=== PATIENT | female | born 1955 | race Caucasian/White ===

== ENCOUNTER 2019-04-17 16:39 | Emergency (ER) | payer MEDICARE, OTHER ==
[~2019-04-17] VITALS: Ht 165.1 cm; Wt 59.0 kg
[2019-04-17] MEDS ORDERED: Prednisone50 MG PO (17:48)
[2019-04-17] MEDS ORDERED: BENADRYL25 MG PO (17:48)
[2019-04-17] MEDS ORDERED: Pepcid20 MG PO (17:48)
[2019-04-17] MEDS ORDERED: EPIPEN 2-P0.3 MG/0.3 IM (19:54)
== END 2019-04-17 20:10 | disposition home or self-care (01) ==
LOC: ER 16:39
DX: T78.40XA Allergy, unspecified, initial encounter (principal)
CPT/HCPCS: 96374; 99284-25; J1200

== ENCOUNTER → 2023-10-25 | Outpatient (CLI) | payer MEDICARE, OTHER ==
[~2023-10-25] MED LIST: BENADRYL25 MG PO; EPIPEN 2-P0.3 MG/0.3 IM; Pepcid20 MG PO; Prednisone50 MG PO
[2023-10-25 15:37] LABS: BASOPHILS ABSOLUTE AUTO 0.06 K/mm3 (0.00-0.23); BASOPHILS PERCENT AUTO 1 % (0-2); EOSINOPHILS ABSOLUTE AUTO 0.19 K/mm3 (0.00-0.68); EOSINOPHILS PERCENT AUTO 3 % (0-6); Hematocrit 42.7 % (33.0-51.0); IMMATURE GRAN ABSOLUTE AUTO 0.02 K/mm3 (0.00-0.10); IMMATURE GRAN PERCENT AUTO 0 % (0-1); LYMPHOCYTES ABSOLUTE AUTO 1.39 K/mm3 (0.84-5.20); LYMPHOCYTES PERCENT AUTO 24 % (21-46); MONOCYTES ABSOLUTE AUTO 0.57 K/mm3 (0.16-1.47); MONOCYTES PERCENT AUTO 10 % (4-13); Mean Corpuscular HGB 30.5 pg (26.0-34.0); Mean Corpuscular HGB Conc 32.8 g/dL (31.5-36.5); Mean Corpuscular Volume 93 fL (80-100); Mean Platelet Volume 10.6 fL (9.1-12.4); NEUTROPHILS ABSOLUTE AUTO 3.68 K/mm3 (1.96-9.15); NEUTROPHILS PERCENT AUTO 62 % (41-73); Platelet Count 179 K/mm3 (150-400); RDW Coefficient Variation 13.2 % (11.7-14.2); RDW Standard Deviation 45.2 fL (35.1-46.3); Red Blood Cell Count 4.59 M/mm3 (3.80-5.20); White Blood Cell Count 5.91 K/mm3 (4.00-11.30)
[2023-10-25 15:39] LABS: Alanine Aminotransfer (ALT/SGP 47 U/L (12-78); Albumin, Blood 4.4 g/dL (3.4-5.0); Albumin/Globulin Ratio 1.2 (0.8-1.8); Alk Phos 105 U/L (50-136); Anion Gap 7 mmol/L (3-11); Aspartate Aminotrans (AST/SGOT 46 U/L (12-37); Bilirubin, Total 0.5 mg/dL (0.1-1.0); Blood Urea Nitrogen 26 mg/dL (8-24); Bun/Creatinine Ratio 29.7 (12.0-20.0); CHOL/HDL RATIO 2.9; CO2, Blood 28 mmol/L (21-32); Calcium, Blood 9.1 mg/dL (8.5-10.1); Chloride, Blood 106 mmol/L (98-108); Cholesterol 234 mg/dL (50-200); Creatinine, Blood 0.88 mg/dL (0.40-1.00); Globulin, Blood 3.6 g/dL (2.2-4.0); Glomerular Filtration Rate 71 (60-); Glucose, Blood 83 mg/dL (70-99); HDL Cholesterol 82 mg/dL (>39); LDL/HDL RATIO 1.7; Low Density Lipoprotein Chol 137 mg/dL (0-110); Potassium, Blood 3.7 mmol/L (3.5-5.5); Sodium, Blood 137 mmol/L (136-145); Triglycerides 77 mg/dL (30-160); Very Low Density Lipoprot Chol 15 mg/dL (6-32)
== END | disposition home or self-care (01) ==
LOC: LAB SHORT 13:11 → LAB 13:11
PROVIDERS: Family Medicine
DX: I10 Essential (primary) hypertension (principal); E03.8 Other specified hypothyroidism
CPT/HCPCS: 80053; 80061; 84439; 84443; 85025

== ENCOUNTER 2024-02-25 11:26 | Day surgery (SDC) | payer MEDICARE, OTHER ==
[~2024-02-25] VITALS: Ht 160 cm; Wt 61.7 kg
[~2024-02-25 11:26] MED LIST changes: +Balanced Salt Epinephrine Irrigation Solution 500 mL IR SCH; +Lidocaine HCl/Pf 1% 5 ML VIAL XX SCH; +MULVITA PO; +Moxifloxacin HCL 0.5 MG/0.1 ML 0.4MLSYR RIGHTEYE SCH; +NS 500 ML IV ONE; +PHENYLEPHRINE\\TROPICAMIDE\\TETRACAINE OPHTHALMIC DILATING SOLN RIGHTEYE PRN; +Povidone-Iodine 450 DROP/30 ML Solution ONE; +Povidone-Iodine 450 DROP/30 ML Solution RIGHTEYE SCH; +Tetracaine HCl/Pf 0.5% Opth Soln 4 ml ONE; +Vitamin D1000 UNI1
[2024-02-25] MEDS ORDERED: LOSARTAN-HCTZ1 EACH PO (12:25)
[2024-02-25] MEDS ORDERED: LEVSOD100 PO (12:25)
[2024-02-25] MEDS ORDERED: Midazolam HCl 1MG / ML 2ML Vial ONE (12:36)
[2024-02-25] MEDS ORDERED: FentaNYL Citrate 50 MCG/ML 2 ML Injection ONE (12:36)
[2024-02-25 13:29] VITALS: BP 109/71
== END 2024-02-25 13:49 | disposition home or self-care (01) ==
LOC: ORSCSDS 11:26
PROVIDERS: Student in an Organized Health Care Education/Training Program
PROC: 08RJ3JZ Replacement of Right Lens with Synthetic Substitute, Percutaneous Approach (ICD-10-PCS; principal; 2024-02-25 13:00)
DX: H25.813 Combined forms of age-related cataract, bilateral (principal); H04.123 Dry eye syndrome of bilateral lacrimal glands; H35.032 Hypertensive retinopathy, left eye; I10 Essential (primary) hypertension; Z86.19 Personal history of other infectious and parasitic diseases; Z87.891 Personal history of nicotine dependence; Z79.899 Other long term (current) drug therapy
CPT/HCPCS: J2250; J3010; J7040; V2632

== ENCOUNTER 2024-03-03 11:18 | Day surgery (SDC) | payer MEDICARE, OTHER ==
[~2024-03-03] VITALS: Ht 160 cm; Wt 61.4 kg
[~2024-03-03 11:18] MED LIST changes: +LEVSOD100 PO; +LOSARTAN-HCTZ1 EACH PO; +Moxifloxacin HCL 0.5 MG/0.1 ML 0.4MLSYR LEFTEYE SCH; -Moxifloxacin HCL 0.5 MG/0.1 ML 0.4MLSYR RIGHTEYE SCH; +PHENYLEPHRINE\\TROPICAMIDE\\TETRACAINE OPHTHALMIC DILATING SOLN LEFTEYE PRN; -PHENYLEPHRINE\\TROPICAMIDE\\TETRACAINE OPHTHALMIC DILATING SOLN RIGHTEYE PRN; +Povidone-Iodine 450 DROP/30 ML Solution LEFTEYE SCH; -Povidone-Iodine 450 DROP/30 ML Solution RIGHTEYE SCH
[2024-03-03] MEDS ORDERED: Midazolam HCl 1MG / ML 2ML Vial ONE (12:46)
[2024-03-03 13:06] VITALS: BP 122/79
--- NOTE | 2024-03-03 13:26 | NUR ---
03/03/24 1326 Talya Huff PT TOLERATING CRANBERRY JUICE WELL WITHOUT N/V. NO PAIN.
== END 2024-03-03 13:15 | disposition home or self-care (01) ==
LOC: ORSCSDS 11:18
PROVIDERS: Student in an Organized Health Care Education/Training Program
PROC: 08RK3JZ Replacement of Left Lens with Synthetic Substitute, Percutaneous Approach (ICD-10-PCS; principal; 2024-03-03 13:00)
DX: H25.812 Combined forms of age-related cataract, left eye (principal); Z96.1 Presence of intraocular lens; H35.3132 Nonexudative age-related macular degeneration, bilateral, intermediate dry stage; I10 Essential (primary) hypertension; E03.9 Hypothyroidism, unspecified; Z79.899 Other long term (current) drug therapy
CPT/HCPCS: J2250; J7040; V2632